=== PATIENT | male | born 2000 | race Caucasian/White ===

== ENCOUNTER 2023-01-05 23:46 | Emergency (ER) | payer SELFPAY ==
[2023-01-05 23:52] VITALS: BP 119/63; PULSE 54; RESP 18; TEMP 98; BMI 26.3
[2023-01-06] MEDS ORDERED: valACYclovir HCL 500 MG TABLET (FP) PO ONE (01:13)
[2023-01-06] MEDS ORDERED: diphenhydrAMINE HCL 25 MG CAPSULE (FP) PO ONE ×2 (01:13→01:27)
[2023-01-06] MEDS ORDERED: valACYclovir HCL 500 MG TABLET (FP) ONE (01:27)
== END 2023-01-06 01:24 | disposition home or self-care (01) ==
LOC: JER 23:46
DX: R21 Rash and other nonspecific skin eruption (principal); B01.89 Other varicella complications
CPT/HCPCS: 99283-25